=== PATIENT | female | born 1955 | race Caucasian/White ===

== ENCOUNTER → 2021-07-08 10:00 | Outpatient (BNVA) | payer OTHER, SELFPAY | PROVIDERS: PCP Internal Medicine; Visit Provider Psychiatry & Neurology Neurology | DX: M79.2 Neuralgia and neuritis, unspecified (principal); H93.19 Tinnitus, unspecified ear | CPT/HCPCS: 99212 ==

== ENCOUNTER → 2021-10-14 10:27 | Outpatient (BNVA) | payer OTHER, SELFPAY | PROVIDERS: PCP Internal Medicine; Visit Provider Psychiatry & Neurology Neurology | DX: M79.2 Neuralgia and neuritis, unspecified (principal); H93.19 Tinnitus, unspecified ear | CPT/HCPCS: 99212 ==

== ENCOUNTER → 2022-01-17 10:25 | Outpatient (BNVA) | payer OTHER, SELFPAY | PROVIDERS: PCP Internal Medicine; Visit Provider Nurse Practitioner Family | DX: R40.0 Somnolence (principal); R06.81 Apnea, not elsewhere classified; R06.83 Snoring; M79.2 Neuralgia and neuritis, unspecified; H93.19 Tinnitus, unspecified ear | CPT/HCPCS: 99212 ==

== ENCOUNTER → 2022-02-15 10:01 | Outpatient (REF) | payer OTHER, SELFPAY | LOC: HO.SL 10:01 | PROVIDERS: PCP Internal Medicine; Visit Provider Nurse Practitioner Family | DX: R06.83 Snoring (principal); R40.0 Somnolence; R06.81 Apnea, not elsewhere classified | CPT/HCPCS: 95806 ==

== ENCOUNTER → 2022-04-01 10:46 | Outpatient (BNVA) | payer OTHER, SELFPAY | PROVIDERS: PCP Internal Medicine; Visit Provider Nurse Practitioner Family | DX: R06.81 Apnea, not elsewhere classified (principal); H93.19 Tinnitus, unspecified ear; M79.2 Neuralgia and neuritis, unspecified; R40.0 Somnolence; R06.83 Snoring | CPT/HCPCS: 99212 ==

== ENCOUNTER → 2022-07-12 21:57 | Outpatient (REF) | payer OTHER, SELFPAY | LOC: HO.SL 21:57 | PROVIDERS: PCP Internal Medicine; Visit Provider Nurse Practitioner Family | DX: G47.33 Obstructive sleep apnea (adult) (pediatric) (principal) | CPT/HCPCS: 95810 ==

== ENCOUNTER 2022-11-03 10:59 | Outpatient (AMB) | payer OTHER, SELFPAY ==
--- NOTE | 2022-11-03 11:01 | MHC.OFFVIS ---
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 Pt reports that she still has occasional left ear ringing and her right facial numbness still same. Pt states that the tinnitus worsened when she is tired. Pt is on amitriptyline 20 mg and baclofen 10 mg. Pt had a repeat PSG sleep study. The sleep study result was significant for mild degree of sleep apnea with increased severity in REM. The AHI was 5/hr, REM AHI was 30/hr and oxygen chapis was 75%. Pt tried APAP [id number]. However, pt states that the mask was very uncomfortable and had more headache. She returned CPAP. [facility] Medical History (Updated 11/03/22 @ 13:44 by Kelly Fowler CNP) Hearing loss Tinnitus TMJ (temporomandibular joint disorder) Surgical History (Updated 11/03/22 @ 11:07 by Urszula Riggins CMA) H/O: hysterectomy Hx of cholecystectomy Family History Mother Cancer HTN (hypertension) Asthma Allergies Stroke Social History (Updated 11/03/22 @ 11:08 by Urszula Riggins CMA) Alcohol intake: never Patient Tobacco Use Status: Never used Tobacco Review of Systems Const All systems reviewed & are unremarkable except as noted in HPI and below ENT Reports Normal hearing present Neuro Reports Normal hearing present Physical Exam Vital Signs: Last Vital Signs Pulse 84 11/03/22 11:08 BP 120/70 11/03/22 11:08 Pulse Ox 94 11/03/22 11:08 Oxygen Delivery Method Room Air 11/03/22 11:08 Const General: cooperative Nutritional Appearance: obese Orientation/consciousness: patient oriented x3 Resp Effort & Inspection: normal respiratory effort and able to speak in complete sentences Neuro General: patient oriented x3, gait normal and moves all extremities Cranial nerves: Yes Normal hearing present Cognition (Neuro): normal cognition Gait exam (Neuro): Normal gait present Motor exam (neuro): 5/5 motor strength present throughout Assessment & Plan Assessment & Plan (1) Neuralgia: Code(s): M79.2 - Neuralgia and neuritis, unspecified (2) Tinnitus: Code(s): H93.19 - Tinnitus, unspecified ear (3) JERICHO (obstructive sleep apnea): Comment: Mild degree of sleep apnea with increased severity in REM. The AHI was 5/hr, REM AHI was 30/hr and oxygen chapis was 75%. Code(s): G47.33 - Obstructive sleep apnea (adult) (pediatric) Plan Advised patient to continue to take baclofen 10 mg qHS along with amitriptyline 20 mg. Advised patient to try CPAP again with different mask, and pt agrees with the plan. Stressed compliance, use CPAP nightly and more than 4 hours. Medications: Refilled baclofen 10 mg PO BEDTIME 30 days 30 tabs 2RF amitriptyline 20 mg (2 x 10 mg) PO BEDTIME 60 tabs 3RF Coding Level of Care Code Est Pt Level 4 (61286) Diagnoses Neuralgia M79.2 Tinnitus H93.19 JERICHO (obstructive sleep apnea) G47.33
[2022-11-03 11:08] VITALS: BP 120/70; PULSE 84; O2SAT 94
== END 2022-11-03 11:31 | disposition home or self-care (01) ==
PROVIDERS: Visit Provider Nurse Practitioner Family
DX: M79.2 Neuralgia and neuritis, unspecified (principal); H93.19 Tinnitus, unspecified ear; G47.33 Obstructive sleep apnea (adult) (pediatric)
CPT/HCPCS: 99214

== ENCOUNTER → 2022-11-03 10:59 | Outpatient (BNVA) | payer OTHER, SELFPAY | PROVIDERS: Visit Provider Nurse Practitioner Family | DX: M79.2 Neuralgia and neuritis, unspecified (principal); H93.19 Tinnitus, unspecified ear; G47.33 Obstructive sleep apnea (adult) (pediatric) | CPT/HCPCS: 99212 ==

== ENCOUNTER 2022-12-13 14:31 | Outpatient (AMB) | payer OTHER, SELFPAY ==
--- NOTE | 2022-12-13 14:38 | MHC.OFFVIS ---
Intake Vital Signs 12/13/22 14:40 Height 5 ft Weight 201 lb 4 oz BMI 39.3 BP 140/80 H Blood Pressure Location Lt brachial Position Sitting Pulse 87 Pulse Source Pulse Oximeter Pulse Oximetry (%) 94 Oxygen Delivery Method Room Air Intake Visit Reasons: Follow up JERICHO Intake Note: Pt presents today for JERICHO fup last OV Advised patient to continue to take baclofen 10 mg qHS along with amitriptyline 20 mg. Advised patient to try CPAP again with different mask, and pt agrees with the plan. Allergies diclofenac Allergy (Mild, Verified 12/13/22 14:45) Hives HPI HPI Comments History of Present Illness Details 67 y/o female patient presents for follow up visit with her daughter who helps players club representative and history. Pt had a new CPAP from [employer]. She sleeps better with CPAP and not waking up frequently at night. Pt's daughter reports that patient is more alert and active during daytime. Pt reports that she still has occasional left ear ringing intermittently but her right facial numbness has improved. Pt states that the tinnitus comes and goes, and it is not bad as before. Pt is on amitriptyline 20 mg and baclofen 10 mg. The CPAP compliance and therapy response reviewed. She is on APAP 4-20 cmH2O. The usage days 47% and the average usage hours 4 hrs. The mean pressure was 5.8 and the residual AHI was 0.8/hr. [facility] Medical History Hearing loss Tinnitus TMJ (temporomandibular joint disorder) Surgical History H/O: hysterectomy Hx of cholecystectomy Family History Mother Cancer HTN (hypertension) Asthma Allergies Stroke Social History Alcohol intake: never Patient Tobacco Use Status: Never used Tobacco Review of Systems Const All systems reviewed & are unremarkable except as noted in HPI and below ENT Reports Normal hearing present Neuro Reports Normal hearing present Physical Exam Vital Signs: Last Vital Signs Pulse 87 12/13/22 14:40 BP 140/80 H 12/13/22 14:40 Pulse Ox 94 12/13/22 14:40 Oxygen Delivery Method Room Air 12/13/22 14:40 BMI result Body Mass Index 39.3 Const General: cooperative Nutritional Appearance: obese Orientation/consciousness: patient oriented x3 Resp Effort & Inspection: normal respiratory effort and able to speak in complete sentences Neuro General: patient oriented x3, gait normal and moves all extremities Cranial nerves: Yes Normal hearing present Cognition (Neuro): normal cognition Gait exam (Neuro): Normal gait present Motor exam (neuro): 5/5 motor strength present throughout Assessment & Plan Assessment & Plan (1) Neuralgia: Code(s): M79.2 - Neuralgia and neuritis, unspecified (2) Tinnitus: Code(s): H93.19 - Tinnitus, unspecified ear (3) JERICHO (obstructive sleep apnea): Comment: Mild degree of sleep apnea with increased severity in REM. The AHI was 5/hr, REM AHI was 30/hr and oxygen chapis was 75%. Code(s): G47.33 - Obstructive sleep apnea (adult) (pediatric) Plan Advised patient to continue to take baclofen 10 mg qHS along with amitriptyline 20 mg. Advised patient to continue to use APAP [id number]. Stressed compliance, use CPAP nightly and more than 4 hours. Coding Level of Care Code Est Pt Level 4 (14425) Diagnoses Neuralgia M79.2 Tinnitus H93.19 JERICHO (obstructive sleep apnea) G47.33
[2022-12-13 14:40] VITALS: BP 140/80; PULSE 87; O2SAT 94; BMI 39.3
== END 2022-12-13 15:06 | disposition home or self-care (01) ==
PROVIDERS: PCP Internal Medicine; Visit Provider Nurse Practitioner Family
DX: M79.2 Neuralgia and neuritis, unspecified (principal); H93.19 Tinnitus, unspecified ear; G47.33 Obstructive sleep apnea (adult) (pediatric)
CPT/HCPCS: 99214

== ENCOUNTER → 2022-12-13 14:31 | Outpatient (BNVA) | payer OTHER, SELFPAY | PROVIDERS: PCP Internal Medicine; Visit Provider Nurse Practitioner Family | DX: G47.33 Obstructive sleep apnea (adult) (pediatric) (principal); M79.2 Neuralgia and neuritis, unspecified; H93.19 Tinnitus, unspecified ear | CPT/HCPCS: 99212 ==

== ENCOUNTER 2023-06-15 11:32 | Outpatient (AMB) | payer OTHER, SELFPAY ==
--- NOTE | 2023-06-15 11:33 | MHC.OFFVIS ---
Intake Vital Signs 06/15/23 11:38 Height 5 ft Weight 205 lb BMI 40.0 BP 132/80 Blood Pressure Location Lt brachial Position Sitting Pulse 86 Pulse Source Pulse Oximeter Pulse Oximetry (%) 95 Oxygen Delivery Method Room Air Intake Visit Reasons: F/u JERICHO -CONF w/address w/dtr Intake Note: Patient presents for f/u JERICHO. Allergies diclofenac Allergy (Mild, Verified 06/15/23 11:37) Hives HPI HPI Comments History of Present Illness Details 68 y/o female patient presents for follow up visit with her daughter who helps cash posting clerk and history. Pt had a new CPAP from [employer]. She sleeps better with CPAP and not waking up frequently at night. Pt's daughter reports that patient is more alert and active during daytime. Pt reports that she still has occasional left ear ringing intermittently but her right facial numbness has improved. Pt states that the tinnitus comes and goes, and it is not bad as before. Pt is on amitriptyline 20 mg and baclofen 10 mg. Pt wants to off from amitriptyline. The CPAP compliance and therapy response is not available at this time. Request compliance report from [employer]. She had asthma exerbation and cold, she could not use CPAP every night. However, she is mostly use every night. [facility] Medical History Hearing loss Tinnitus TMJ (temporomandibular joint disorder) Surgical History Hx of cholecystectomy H/O: hysterectomy Family History Mother Cancer HTN (hypertension) Asthma Allergies Stroke Social History Alcohol intake: never Patient Tobacco Use Status: Never used Tobacco Review of Systems Const All systems reviewed & are unremarkable except as noted in HPI and below ENT Reports Normal hearing present Neuro Reports Normal hearing present Physical Exam Vital Signs: Last Vital Signs Pulse 86 06/15/23 11:38 BP 132/80 06/15/23 11:38 Pulse Ox 95 06/15/23 11:38 Oxygen Delivery Method Room Air 06/15/23 11:38 BMI result Body Mass Index 40.0 Const General: cooperative Nutritional Appearance: obese Orientation/consciousness: patient oriented x3 Resp Effort & Inspection: normal respiratory effort and able to speak in complete sentences Neuro General: patient oriented x3, gait normal and moves all extremities Cranial nerves: Yes Normal hearing present Cognition (Neuro): normal cognition Gait exam (Neuro): Normal gait present Motor exam (neuro): 5/5 motor strength present throughout Assessment & Plan Assessment & Plan (1) Neuralgia: Code(s): M79.2 - Neuralgia and neuritis, unspecified (2) Tinnitus: Code(s): H93.19 - Tinnitus, unspecified ear (3) JERICHO (obstructive sleep apnea): Comment: Mild degree of sleep apnea with increased severity in REM. The AHI was 5/hr, REM AHI was 30/hr and oxygen chapis was 75%. Code(s): G47.33 - Obstructive sleep apnea (adult) (pediatric) Plan Advised patient to continue to take baclofen 10 mg qHS and reduce amitriptyline 10 mg and monitor the facial numbness. Advised patient to continue to use APAP [id number]. Stressed compliance, use CPAP nightly and more than 4 hours. Coding Level of Care Code Est Pt Level 3 (67785) Diagnoses Neuralgia M79.2 Tinnitus H93.19 JERICHO (obstructive sleep apnea) G47.33
[2023-06-15 11:38] VITALS: BP 132/80; PULSE 86; O2SAT 95; BMI 40.0
== END 2023-06-15 11:52 | disposition home or self-care (01) ==
PROVIDERS: PCP Internal Medicine; Visit Provider Nurse Practitioner Family
DX: M79.2 Neuralgia and neuritis, unspecified (principal); H93.19 Tinnitus, unspecified ear; G47.33 Obstructive sleep apnea (adult) (pediatric)
CPT/HCPCS: 99213

== ENCOUNTER → 2023-06-15 11:32 | Outpatient (BNVA) | payer OTHER, SELFPAY | PROVIDERS: PCP Internal Medicine; Visit Provider Nurse Practitioner Family | DX: M79.2 Neuralgia and neuritis, unspecified (principal); G47.33 Obstructive sleep apnea (adult) (pediatric); H93.19 Tinnitus, unspecified ear | CPT/HCPCS: 99212 ==